=== PATIENT | female | born 1960 | race Caucasian/White ===

== ENCOUNTER 2024-05-19 10:42 | Emergency (ER) | payer MEDICAID, BC ==
[~2024-05-19] VITALS: Ht 167.6 cm; Wt 98.0 kg
[2024-05-19 10:53] VITALS: O2SAT 99
[2024-05-19 10:57] VITALS: BP 128/80; PULSE 90; RESP 16; TEMP 98.6; O2SAT 99
[2024-05-19 11:49] LABS: POTASSIUM 4.5 mEq/L (3.5-5.1)
[2024-05-19 11:50] LABS: CALCIUM 10.1 mg/dL (8.7-10.4)
[2024-05-19 11:55] LABS: CREATININE 1.1 mg/dL (0.6-1.0)
[2024-05-19 11:58] LABS: ALANINE AMINOTRANSFERASE 20 IU/L (10-49); ALBUMIN 3.9 g/dL (3.2-4.8); ASPARTATE AMINOTRANSFERASE 13 IU/L (<34); BETA HYDROXYBUTYRATE 0.3 mMol/L (0.0-0.3); BILIRUBIN DIRECT 0.2 mg/dL (<=3.0); BILIRUBIN TOTAL 0.7 mg/dL (0.1-1.0)
[2024-05-19 12:05] LABS: INR 0.9
[2024-05-19 12:09] LABS: BASOPHILS % 0.7 % (0.0-2.0); EOSINOPHILS % 1.3 % (0.0-5.0); HEMATOCRIT. 41.5 % (36.0-48.0); HEMOGLOBIN. 13.4 g/dL (12.0-16.0); LYMPHOCYTES % 20.9 % (20.0-50.0); MEAN CORPUSCULAR HEMOGLOBIN 28.4 pg (28.0-32.0); MEAN CORPUSCULAR HGB CONC 32.2 g/dL (31.0-37.0); MONOCYTES % 6.3 % (2.0-8.0); NEUTROPHILS % 70.8 % (40.0-76.0); PLATELET 252 x1000/uL (130-400); RED BLOOD CELL COUNT 4.72 mill/uL (4.2-5.4); RED CELL DISTRIBUTION WIDTH 15.6 % (11.6-14.6); WHITE BLOOD COUNT 9.6 x1000/uL (4.5-11.0)
[2024-05-19 12:55] LABS: TROPONIN I HIGH SENSITIVITY < 4 ng/L (3.0-34)
[2024-05-19] MEDS ORDERED: INSULIN LISPRO 100 UNITS/ML SUBCUT ONE (13:00)
[2024-05-19 14:49] LABS: CLARITY URINE CLEAR (CLEAR); COLOR URINE YELLOW (YELLOW); GLUCOSE URINE 3+ (NEGATIVE); KETONES URINE TRACE (NEGATIVE); LEUKOCYTE ESTERASE URINE NEGATIVE (NEGATIVE); NITRITE URINE NEGATIVE (NEGATIVE); OCCULT BLOOD URINE NEGATIVE (NEGATIVE); PROTEIN URINE NEGATIVE (NEGATIVE); SPECIFIC GRAVITY URINE 1.029 (1.005-1.030); UROBILINOGEN URINE 0.2 E.U./dL (0.2-1.0)
[2024-05-19] MEDS: SODIUM CHLORIDE 0.9% 1,000 ML IV ONE (15:07)
[2024-05-19] MEDS: INSULIN LISPRO 100 UNITS/ML SUBCUT NR (15:12)
[2024-05-19 15:50] LABS: BACTERIA URINE NONE SEEN; RBC URINE 0-2 /hpf (0-2); SQUAMOUS EPITHELIAL CELL URINE 1+ /lpf (RARE/1+); WBC URINE 0-2 /hpf (0-2)
== END 2024-05-19 17:02 | disposition home or self-care (01) ==
LOC: ER 10:42
DX: E11.65 Type 2 diabetes mellitus with hyperglycemia (principal); I10 Essential (primary) hypertension; Z88.8 Allergy status to other drugs, medicaments and biological substances; Z91.041 Radiographic dye allergy status
CPT/HCPCS: 80076; 80048; 81003; 82010; 82962; 83690; 85025; 85610; 84484; 36415; 71045; 70450; 93005; 96360; 96372; 99291; J1815; J7030; Z7610